=== PATIENT | female | born 1990 | race Caucasian/White ===

== ENCOUNTER 2016-07-05 14:40 | Emergency (ER) | payer MEDICAID ==
[2010-02-16 10:28] VITALS: BMI 34.3
[2016-09-01] MEDS ORDERED: FERROUS SULFAT325 MG PO (11:48)
[2016-09-01] MEDS ORDERED: PRENATAL COMPLE1 TAB PO (11:48)
[2016-09-14 05:53] VITALS: BMI 39.6
== END 2016-07-05 17:18 | disposition home or self-care (01) ==
LOC: D.ER 14:40
DX: S79.911A Unspecified injury of right hip, initial encounter (principal); W10.9XXA Fall (on) (from) unspecified stairs and steps, initial encounter; Y93.89 Activity, other specified; Y92.019 Unspecified place in single-family (private) house as the place of occurrence of the external cause; Z3A.29 29 weeks gestation of pregnancy

== ENCOUNTER → 2016-09-01 11:37 | Outpatient (CLI) | payer MEDICAID ==
[2010-02-16 10:28] VITALS: BMI 34.3
[~2016-09-01 11:37] MED LIST: FERROUS SULFAT325 MG PO; IBUPROFEN600 MG PO; PERCOCET 5-3251 TAB PO; PRENATAL COMPLE1 TAB PO
[2016-09-14 05:53] VITALS: BMI 39.6
== END | disposition home or self-care (01) ==
LOC: D.LDO 11:37
DX: O36.8190 Decreased fetal movements, unspecified trimester, not applicable or unspecified (principal)

== ENCOUNTER → 2016-09-04 13:39 | Outpatient (CLI) | payer MEDICAID ==
[2010-02-16 10:28] VITALS: BMI 34.3
[2016-09-14 05:53] VITALS: BMI 39.6
== END | disposition home or self-care (01) ==
LOC: D.LDO 13:39
DX: O36.8130 Decreased fetal movements, third trimester, not applicable or unspecified (principal); Z3A.37 37 weeks gestation of pregnancy

== ENCOUNTER → 2016-09-08 11:15 | Outpatient (CLI) | payer MEDICAID ==
[2010-02-16 10:28] VITALS: BMI 34.3
[2016-09-08 12:19] LABS: BASOPHILS 0.3 % (0.0-2.0); HEMATOCRIT 34.1 % (36.0-48.0); HEMOGLOBIN 11.2 g/dL (12-16); IMMATURE GRANULOCYTES 0.3 % (0-5); LYMPHOCYTES 20.8 % (15-50); MCH 28.3 pg (26.0-34.0); MCHC 32.8 g/dL (31.0-37.0); MCV 86.1 fL (80.0-100.0); MEAN PLATELET VOLUME 10.3 fL (7.4-10.4); MONOCYTES 9.1 % (2-11); NEUTROPHILS 68.5 % (40-80); PLATELET COUNT 277 10x3/uL (130-400); RBC 3.96 10x6/uL (4.00-5.40); RDW 12.7 % (11.5-14.5); WBC 9.8 10x3/uL (4.8-10.8)
[2016-09-08 12:41] LABS: ALBUMIN 2.3 g/dL (3.4-5.0); ALKALINE PHOSPHATASE 170 U/L (46-116); ALT (SGPT) 15 U/L (10-68); BILIRUBIN - INDIRECT 0.28 mg/dL (0.00-1.00); BILIRUBIN - TOTAL 0.33 mg/dL (0.2-1.3); CALC OSMOLALITY 270 mosm/kg (275-300); CALCIUM 8.3 mg/dL (8.5-10.1); CARBON DIOXIDE 24.3 mmol/L (21.0-32.0); CHLORIDE - SERUM 105 mmol/L (98-107); CREATININE - SERUM 0.4 mg/dL (0.6-1.3); GLUCOSE 87 mg/dL (74-106); POTASSIUM - SERUM 3.7 mmol/L (3.5-5.1); PROTEIN - SERUM 6.7 g/dL (6.4-8.2); SODIUM 137 mmol/L (136-145); UREA NITROGEN 6 mg/dL (7-18); URIC ACID 3.6 mg/dL (2.6-7.2); eGFR NON AFRICAN AMERICAN > 90 mL/min (90-120)
[2016-09-08 12:53] LABS: BILIRUBIN - DIRECT 0.05 mg/dL (0.00-0.30)
[2016-09-10 11:05] LABS: PROTEIN - URINE 27.9 mg/dL (0.0-11.9)
[2016-09-14 05:53] VITALS: BMI 39.6
== END | disposition home or self-care (01) ==
LOC: D.LDO 11:15
PROVIDERS: Specialist
DX: Z34.93 Encounter for supervision of normal pregnancy, unspecified, third trimester (principal); Z3A.38 38 weeks gestation of pregnancy; R03.0 Elevated blood-pressure reading, without diagnosis of hypertension

== ENCOUNTER → 2016-09-10 10:10 | Outpatient (CLI) | payer MEDICAID ==
[2010-02-16 10:28] VITALS: BMI 34.3
[~2016-09-10 10:10] MED LIST changes: -IBUPROFEN600 MG PO; -PERCOCET 5-3251 TAB PO
[2016-09-10 11:52] LABS: APPEARANCE CLOUDY (CLEAR); COLOR YELLOW (YELLOW); LEUKOCYTE ESTERASE 2+ (NEGATIVE); NITRITE NEGATIVE (NEGATIVE)
[2016-09-10 11:53] LABS: BACTERIA MANY /hpf (NONE SEEN); BILIRUBIN NEGATIVE (NEGATIVE); EPITHELIAL CELLS 0-5 /hpf (0-5); GLUCOSE NEGATIVE (NEGATIVE); KETONE SMALL mg/dL (NEGATIVE); MUCUS >1+ /lpf (NONE SEEN); PROTEIN 2+ mg/dL (NEGATIVE); RED CELLS - URINE 0-5 /hpf (0-5); UROBILINOGEN NORMAL (NORMAL); YEAST NONE SEEN /hpf (NONE SEEN)
== END | disposition home or self-care (01) ==
LOC: D.LDO 10:10
PROVIDERS: Specialist
DX: Z34.83 Encounter for supervision of other normal pregnancy, third trimester (principal); Z3A.38 38 weeks gestation of pregnancy; R03.0 Elevated blood-pressure reading, without diagnosis of hypertension

== ENCOUNTER 2016-09-14 05:43 | Inpatient (IN) | payer MEDICAID ==
[~2016-09-14] VITALS: Ht 165.1 cm; Wt 108.0 kg
[2016-09-14] VITALS (14 sets, daily range): BP systolic 113–156; BP diastolic 56–87; Ht 165.1 cm; Wt 108.0 kg
[2016-09-14 06:17] LABS: HEMATOCRIT 36.6 % (36.0-48.0); HEMOGLOBIN 12.2 g/dL (12-16); MCH 28.3 pg (26.0-34.0); MCHC 33.3 g/dL (31.0-37.0); MCV 84.9 fL (80.0-100.0); MEAN PLATELET VOLUME 10.9 fL (7.4-10.4); RBC 4.31 10x6/uL (4.00-5.40); RDW 12.8 % (11.5-14.5); WBC 9.6 10x3/uL (4.8-10.8)
--- NOTE | 2016-09-14 08:29 | NUR ---
BABY BOY BORN AT 0815 PLACENTA AT 0816 AGBS AND BLOOD SAMPLES DRAWN FROM CORD BLOOD.
--- NOTE | 2016-09-14 09:29 | NUR ---
PT FUNDUS IS STILL MIDLINE UMBILICUS AND FIRM. CONCEPCION CATHETOR IS SECURE TO RIGHT UPPER THIGH. PT VOICES"IM JUST TIRED, BUT MY PAIN IS BETTER", "2/10" ON NUMERIC SCALE. SCANT BLEEDING ON DEVANTE PAD
--- NOTE | 2016-09-14 09:42 | NUR ---
RECEIVED PT FROM VIA BED TO ROOM 1278. BED LOCKED AND PLACED IN LOW POSITION. VSS. HRRR WITHOUT AUDIBLE MURMUR. BBS CLEAR. BS HYPOACTIVE X 4 QUADS. ABDOMINAL DRESSING DRY WITHOUT DRAINAGE NOTED. ICE PACK TO INCISION. SCDS ON BLE. PUMP ON. CONCEPCION TO GRAVITY DRAINING SLIGHTLY BLUE COLORED URINE. PIV SITE CLEAR TO RIGHT FOREARM. PT STATES PAIN OF "7" ON 0-10 PAIN SCALE. ORIENTED TO ROOM, BED, AND CALL LIGHT. SR UPX 2. CALL LIGHT IN REACH.
--- NOTE | 2016-09-14 09:45 | NUR ---
abd dressing cd&i. small lochia noted under pad. fundus uu/firm. scant lochia noted with massage- no clots. pads changed. ice cap to abd.
[2016-09-14 09:56] LABS: APPEARANCE CLEAR (CLEAR); COLOR YELLOW (YELLOW)
[2016-09-14 09:57] LABS: BILIRUBIN NEGATIVE (NEGATIVE); GLUCOSE NEGATIVE (NEGATIVE); KETONE NEGATIVE (NEGATIVE); LEUKOCYTE ESTERASE TRACE (NEGATIVE); NITRITE NEGATIVE (NEGATIVE); PROTEIN NEGATIVE (NEGATIVE); UROBILINOGEN NORMAL (NORMAL)
[2016-09-14 09:58] LABS: BACTERIA NONE SEEN /hpf (NONE SEEN); EPITHELIAL CELLS NSEEN /hpf (0-5); MUCUS <1+ /lpf (NONE SEEN); RED CELLS - URINE NONE SEEN /hpf (0-5); WHITE CELLS - URINE RARE /hpf (0-5)
--- NOTE | 2016-09-14 10:44 | NUR ---
PT C/O BREAKTHROUGH INCISIONAL PAIN AND CRAMPING. TORADOL 30 MG GIVEN SIVP OVER 2 MINUTES. PT INSTRUCTED ON MED. VERBALIZES UNDERSTANDING.
--- NOTE | 2016-09-14 11:20 | NUR ---
PT SITTING UP IN BED. VISITS WITH FAMILY. STATES PAIN NOW "3" ON 0-10 PAIN SCALE.
--- NOTE | 2016-09-14 12:35 | NUR ---
PT SITTING UP IN BED. CONSUMING CLEAR LIQUID DIET. TOLERATING WELL. DENIES NEEDS OR C/O.
--- NOTE | 2016-09-14 14:15 | NUR ---
PT SITTING UP IN BED. VISITS WITH FAMILY. DENIES C/O. I/O COMPLETED. REQUESTS AND RECEIVES COVERS OFF PT IS HOT. FUNDUS FIRM AT U/U. RUBRA LOCHIA SCANT AMT. ABDOMINAL DRESSING DRY WITHOUT DRAINAGE. FRESH ICE PACK TO INCISION. PIV SITE CLEAR. ICE CHIPS PROVIDED TO PT.
--- NOTE | 2016-09-14 15:35 | NUR ---
PT SITTING UP IN BED. EYES CLOSED. WAKES UPON ENTERING ROOM. DEMEROL LEAD FIRE PROTECTION ENGINEER VIAL CHANGED. PT DENIES NEEDS OR C/O.
--- NOTE | 2016-09-14 16:44 | NUR ---
PT SITTING UP IN BED. VISITS WITH FAMILY. PROVIDED PT WITH TREAT BOX WITH MEAL TICKET. DENIES NEEDS OR C/O.
--- NOTE | 2016-09-14 18:00 | NUR ---
PERICARE DONE. FUNDUS FIRM AT U/1. RUBRA LOCHIA SMALL AMT. NO CLOTS NOTED. PERICARE DONE. CHUX, PERIPAD AND PINK PAD CHANGED. PT REPOSITIONS TO RIGHT SIDE IN BED. PROPPED WITH PILLOWS. ABDOMINAL DRESSING DRY WITHOUT DRAINAGE. FRESH ICE PACK TO INCISION. I/O COMPLETED. URINE CONCENTRATED. PT PROVIDED LARGE CUP OF ICE WATER AND ENCOURAGED TO INCREASE FLUID INTAKE. PT VERBALIZES UNDERSTANDING. SR UPX 2. CALL LIGHT AND SQUADRON WORKER BUTTON IN REACH.
--- NOTE | 2016-09-14 19:08 | NUR ---
RCVD THIS G2 NOW P2 FROM Phylicia CAVAZOS RN. PT LYING ON RT SIDE WITH EYES CLOSED, RESTING. PT AWAKENS EASILY UPON THIS RN ENTERING ROOM. V/S ASSESSED AT THIS TIME. PT RATES PAIN CURRENTLY 4/10 IN ABD AND REPORTS THIS TOLERABLE. PT IS AGREEABLE TO AMB @2015 WHICH IS 12 HRS POST OP AND WILL TRANSFER TO ROOM 1257 TO CONT POST CARE. SHIFT ASSESSMENT COMPLETE AT THIS TIME. BREATH SOUNDS CLEAR =X2. HR RRR, PPP, BOWEL SOUNDS ACTIVE X4. PIV TO RT FOREARM C/D/I, NO ERYTHEMA OR EDEMA NOTED TO SITE WITH NS WITH 20 U PITOCIN INFUSING @ 125ML/HR VIA PUMP. RN FIELD CURRENTLY IN USE. SEE EMAR. LARGE DRESSING NOTED OVER INCISION TO ABD C/D/I. SCD'S ON AND FUNCTIONING PROPERLY. NO EDEMA NOTED TO BLE. PT REQUESTS & RECEIVES ICE WATER. DENIES FURTHER NEEDS. BED LOW, WHEELS LOCKED, CL IN REACH, SIDE RAILS UP X2.
--- NOTE | 2016-09-14 20:15 | NUR ---
PIV TO RT FOREARM SL AT THIS TIME. CONCEPCION REMOVED WITH CATH TIP INTACT, PT DILMA. WELL. 175 ML CLEAR GREEN TINGED URINE EMPTIED FROM CONCEPCION BAG. PT UP TO SITTING ON SIDE OF BED. REPORTS FEELING DIZZY, INST TO SIT UNTIL FEELING GOES AWAY. AFTER 30 SECS PT REPORTS DIZZINESS ELEVIATED. PT UP TO STANDING BEDSIDE. PT IS STEADY ON FEET. AMB TO BATHROOM, STEADY GAIT NOTED. PT VOIDS ANOTHER 200ML. CLEAN GOWN, PERIPADS AND PANTIES PROVIDED. PT RATES CURRENTLY PAIN 01/21. PLAN TO ADMINISTER PERCOCET PER ORDERS, SEE EMAR. PT AMB'S PER SELF TO ROOM 1257 AT THIS TIME.
--- NOTE | 2016-09-14 20:36 | NUR ---
PT AND FAMILY ORIENTED TO ROOM. PT POSITIONS SELF IN BED FOR COMFORT. PERCOCET 10/325MG X1 TAB GIVEN FOR PAIN RATED 8/10 AT THIS TIME. FAMILY AT BEDSIDE. ICE WATER PROVIDED PER PT REQUEST. PT DENIES FURTHER NEEDS AT THIS TIME. WILL CONT. POC.
--- NOTE | 2016-09-14 20:38 | NUR ---
12 ML OF ASSEMBLER MOTOR VEHICLE WASTED AND DOCUMENTED IN PYXIS.
--- NOTE | 2016-09-14 21:20 | NUR ---
PAIN REASSESSMENT COMPLETE. PT RATES PAIN 2/10 CURRENTLY AND TOLERABLE. INFANT UP IN ARMS FOR BONDING AT THIS TIME. FAMILY REMAINS AT BEDSIDE. PT DENIES FURTHER NEEDS. WILL CONT. POC.
--- NOTE | 2016-09-14 22:14 | NUR ---
ROUNDS MADE. PT LYING ON BACK WITH UP ON CHEST. PT RATES PAIN A 2/10 AND DESCRIBES IT A DULL ACHE. FAMILY REMAINS AT BEDSIDE. PT DENIES FURTHER NEEDS AT THIS TIME.
--- NOTE | 2016-09-15 00:16 | NUR ---
PT RESTING ON BACK, EYES CLOSED, RESP EVEN & UNLABORED. FAMILY RESTING ON BEDSIDE COUCH. PT LEFT UNDISTURBED AT THIS TIME.
--- NOTE | 2016-09-15 01:41 | NUR ---
PT RINGS CL, THIS RN TO BEDSIDE. PT REQUESTS & RECEIVES PERCOCET 10/325MG X1 TAB FOR PAIN RATED 9/10 IN ABD AT THIS TIME. FAMILY REMAINS AT BEDSIDE. UP IN ARMS. PT DENIES FURTHER NEEDS AT THIS TIME.
--- NOTE | 2016-09-15 02:24 | NUR ---
PAIN REASSESSMENT COMPLETE. PT RATES CURRENT PAIN LEVEL 2/10 AND TOLERABLE. UP IN ARMS. ADV PT NOT TO FALL ASLEEP WITH INFANT IN ARMS AND TO PLACE IN OPEN CRIB OR CALL NBN. PT VERBALIZED UNDERSTANDING AND DENIES FURTHER NEEDS.
--- NOTE | 2016-09-15 03:30 | NUR ---
PT CALLS TO SEND BACK TO NBN. INFANT TRANSPORTED VIA OPEN CRIB PER THIS RN. PT DENIES FURTHER NEEDS AT THIS TIME.
--- NOTE | 2016-09-15 05:56 | NUR ---
ROUNDS MADE. PT LYING ON BACK, HOB 30 DEGREES, RESTING, EYES CLOSED, RESP EVEN AND UNLABORED. PT LEFT UNDISTURBED AT THIS TIME. FAMILY REMAINS ASLEEP AT BEDSIDE.
[2016-09-15 05:57] LABS: BASOPHILS 0.1 % (0.0-2.0); EOSINOPHILS 1.3 % (0-7); HEMATOCRIT 33.8 % (36.0-48.0); HEMOGLOBIN 10.9 g/dL (12-16); IMMATURE GRANULOCYTES 0.3 % (0-5); LYMPHOCYTES 7.5 % (15-50); MCH 27.8 pg (26.0-34.0); MCHC 32.2 g/dL (31.0-37.0); MCV 86.2 fL (80.0-100.0); MEAN PLATELET VOLUME 10.4 fL (7.4-10.4); MONOCYTES 6.5 % (2-11); NEUTROPHILS 84.3 % (40-80); RBC 3.92 10x6/uL (4.00-5.40); RDW 12.9 % (11.5-14.5)
[2016-09-15 06:21] LABS: PLATELET COUNT 235 10x3/uL (130-400); WBC 12.2 10x3/uL (4.8-10.8)
--- NOTE | 2016-09-15 07:19 | NUR ---
called to room, pt amb back to bed per herself after voiding. Ask for pain med, rates pain at incision at 10/10. Meds given as charted on emar with large ice water. No other needs at this time. Family at bedside caring for at this time. Side rails up x 2 with phone and call light in reach.
[2016-09-15 07:23] LABS: RAPID PLASMA REAGIN Non Reactive (Non Reactive)
[2016-09-15 08:05] VITALS: BP 122/67
--- NOTE | 2016-09-15 08:47 | NUR ---
AM assessment completed as charted on flowsheet. pt rates pain at 2/10 at this time, fundus firm at u/1 with light lochia, she denies clots and states bleeding is "very little". Bikini incision covered with large white bandage that is clean and dry. Verbal instrucstions given on how to remove bandage while showering. Questions answered about when she could shower and towels provided, her mother states that she will be present and will call nurse if assistance is needed. Side rails up x 2 with call light and phone in reach. in crib at bedside at this time.
--- NOTE | 2016-09-15 09:20 | NUR ---
Pt up to shower. Bed linens changed.
--- NOTE | 2016-09-15 09:29 | NUR ---
Pt called out abd dressing wet. Removed dressing without difficulty. Pt continues to rinse in shower. Will call when ready to get out.
--- NOTE | 2016-09-15 09:37 | NUR ---
Assisted Patient after shower. Incision dried - no redness or drainaged noted. Covered with catherine pad. Underwear on and assisted with dressing. Pt ambulating in room without difficulty. Ice water provided per request.
--- NOTE | 2016-09-15 10:30 | NUR ---
Pt up walking without difficlty. Tolerated well.
--- NOTE | 2016-09-15 10:54 | NUR ---
Pt resting in bed denies needs. Asked about pain and stated she was ok. Explain not to go to long without pain medications. Pt states, "if it is time I will take pain medication".
--- NOTE | 2016-09-15 10:55 | NUR ---
Explain to patient it will be about 20 minutes and I will bring her pain medication in. Verblized her understanding
--- NOTE | 2016-09-15 11:14 | NUR ---
Medicated for pain rates 8 on 0-10 pain scale. Urine hat provided to catch next 3 voids. Pt verblized her understanding. Infant resting quietly in open crib. Color WNL and skin warm and dry to touch.
[2016-09-15 11:22] VITALS: BP 112/64
--- NOTE | 2016-09-15 11:23 | NUR ---
IS USED AND REACHED 2000 X 3. INSTRUCTED PT TO USE EVERY HOUR WHILE AWAK. VERBLIZED HER UNDERSTANDING.
--- NOTE | 2016-09-15 11:24 | NUR ---
PT STATES SHE HAS VOIDED X 3 SINCE CATH HAS COME OUT THIS AM. SHE DOES NOT FEED SHE IS VOIDING LARGE AMOUNTS. SHE KNOWS TO VOID IN HAT AND CALL.
--- NOTE | 2016-09-15 12:15 | NUR ---
Pt rates pain 5 on scale of 0-10. Awake and alert. Pt up to void without difficulty. Voided 425 ml. Will capture one more void. Pt denes needs.
--- NOTE | 2016-09-15 13:10 | NUR ---
Pt awke and aler, denies needs at this time. No acute distress noted. Holding infant and feeding bottle at this time. States pain 2 on 0-10 pain scale.
--- NOTE | 2016-09-15 14:27 | NUR ---
Medicated for pain see emar. Provided grayson gross. peanut butter and milk. Pt denies further needs. Voided 300 ml katrina urine.
--- NOTE | 2016-09-15 15:47 | NUR ---
C/O PAIN AT INCISION. ENOCURAGED PT TO EMPTY BLADDER. PAIN MEDS GIVEN.
[2016-09-15 16:06] VITALS: BP 116/70
--- NOTE | 2016-09-15 19:35 | NUR ---
PT RECEIVED SITTING UP IN BED BOTTLEFEEDING INFANT AT THIS TIME. FAMILY AT BEDSIDE. DENIES NEEDS AT THIS TIME. BED LOW. PHONE AND CALL LIGHT IN REACH. SRX2.
[2016-09-15 20:26] VITALS: BP 127/66
--- NOTE | 2016-09-15 20:26 | NUR ---
PT SITTING UP IN BED HOLDING AT THIS TIME. VSS. SALINE LOCK NOTED TO RIGHT FOREARM. DRESSING CDI. HEART RRR. LUNG SOUNDS CLEAR BILATERALLY. BOWEL SOUNDS ACTIVE X4 QUADRENTS. ABDOMEN SOFT WITH TENDERNESS. FUNDUS FIRM AND MIDLINE. U/2. LOW TRANSVERSE INCISION NOTED TO ABDOMEN WITH DERMABOND. NO REDNESS, SWELLING, OR PURULENT DRAINAGE NOTED. SCANT LOCHIA RUBRA NOTED TO DEVANTE PAD AT THIS TIME. PT STATES BLEEDING HAS BEEN LIGHT THROUGHOUT THE DAY. ADMINISTERED PERCOCET PO PER ORDERS AT THIS TIME FOR PAIN PT RATES 01/21. PT REQUESTS ICE WATER. DENIES OTHER NEEDS. BED LOW. PHONE AND CALL LIGHT IN REACH. SRX2.
--- NOTE | 2016-09-15 21:28 | NUR ---
REASSESSED PTS PAIN AT THIS TIME. RATES PAIN 4/10. DENIES NEEDS. BED LOW. PHONE AND CALL LIGHT IN REACH. SRX2.
--- NOTE | 2016-09-15 22:37 | NUR ---
ADMINISTERED MOTRIN PO PER ORDERS AT THIS TIME. PT DENIES OTHER NEEDS. BED LOW. PHONE AND CALL LIGHT IN REACH. SRX2.
--- NOTE | 2016-09-15 22:38 | NUR ---
ADMINISTERED MOTRIN PO PER ORDERS AT THIS TIME FOR PAIN PT RATES 11/21. PT DENIES OTHER NEEDS. BED LOW. PHONE AND CALL LIGHT IN REACH. SRX2.
[2016-09-16] VITALS: BP 134/74
--- NOTE | 2016-09-16 | NUR ---
PT RESTING QUIETLY AT THIS TIME. AROUSED EASILY. VSS. DENIES NEEDS AT THIS TIME. BED LOW. PHONE AND CALL LIGHT IN REACH. SRX2.
--- NOTE | 2016-09-16 02:00 | NUR ---
PT RESTING QUIETLY AT THIS TIME WITH EYES CLOSED. RESPIRATIONS EVEN, NON-LABORED. NO ACUTE DISTRESS NOTED AT THIS TIME. BED LOW. PHONE AND CALL LIGHT IN REACH. SRX2.
[2016-09-16 04:09] VITALS: BP 134/72
--- NOTE | 2016-09-16 04:09 | NUR ---
PT RESTING QUIETLY AT THIS TIME WITH EYES CLOSED. AROUSED EASILY. ADMINISTERED PERCOCET PO PER ORDERS AT THIS TIME FOR PAIN PT RATES 02/21. VSS. PT DENIES OTHER NEEDS. BED LOW. PHONE AND CALL LIGHT IN REACH. SRX2.
--- NOTE | 2016-09-16 06:40 | NUR ---
PT BOTTLEFEEDING AT THIS TIME. REQUESTS MEDICATION FOR PAIN PT RATES 11/21. ADMINISTERED MOTRIN PO PER ORDERS AT THIS TIME. PT DENIES OTHER NEEDS. BED LOW. PHONE AND CALL LIGHT IN REACH. SRX2.
--- NOTE | 2016-09-16 06:55 | NUR ---
SBAR HANDOFF RECEIVED FROM GUILLERMINA GARCIA RN. PATIENT SUPINE IN BED, SLEEPING AT INTERVALS. MOTHER AND 2 OTHER VISITORS AT BEDSIDE. NO SIGNS OF RESP DISTRESS OR OTHER DISTRESS NOTED OR REPORTED.
[2016-09-16] MEDS ORDERED: IBUPROFEN600 MG PO (08:02)
[2016-09-16] MEDS ORDERED: PERCOCET 5-3251 TAB PO (08:02)
--- NOTE | 2016-09-16 08:15 | NUR ---
UP AND ABOUT IN ROOM. STATES ABD INCISION PAIN GETTING WORSE AND REQUESTS ANALGESIA. BBS = AND CTA. REPORTS USE OF INCENTIVE SPIROMETER REGULARLY. BOWEL SOUNDS ACTIVE X 4 QUADS; REPORTS PASSAGE OF GAS RECTALLY. FUNDUS FIRM AT 2 FINGERS BELOW UMBILICUS. REPORTS LOCHIA LIGHT. DOZIER. NEGATIVE HOMANS. RIGHT FOREARM SALINE LOCK REMOVED NOTING NO SIGNS OF REDNESS, SWELLING, DRAINAGE OR FEVER; STERILE BANDAID APPLIED; INSTRUCTED TO LEAVE BANDAID INTACT X 24 HR AND REPORT SIGNS OF COMPLICATIONS AT ONSET. ABD INCISION NOTED WITH DERMABOND INTACT; MARGINS WELL APPROXIMATED; SLIGHT BRUISING; NO REDNESS, SWELLING, DRAINAGE OR FEVER; INSTRUCTED TO CALL SURGEON AT ONSET OF SAME, IF NOTED. ALERT AND ORIENTED X 4. SKIN WARM DRY AND PINK/SLIGHTLY PALE. RESP REG AND EVEN. NO SIGNS OF RESP DISTRESS OR OTHER DISTRESS NOTED OR REPORTED.
--- NOTE | 2016-09-16 08:15 | NUR ---
PT IS LYING IN BED. OFFERS NO COMPLAINTS. GEN- AWAKE AND ALERT. LUNGS- CLEAR. HEART- RRR. ABD - SOFT WITH TENDERNESS. INCISION CLEAN AND DRY, WITH DERMABOND. EXT- MINIMAL EDEMA. BED IS LOW, SIDE RAILS UP X 2 AND CALL LIGHT IN REACH.
--- NOTE | 2016-09-16 09:15 | NUR ---
REPORTS PAIN SUBSIDING. DISCHARGE TEACHING COMPLETED. UP AND ABOUT IN ROOM. BONDING WELL WITH INFANT.
--- NOTE | 2016-09-16 09:20 | NUR ---
WRITTEN RX FOR PERCOCET 5 AND MOTRIN GIVEN
--- NOTE | 2016-09-16 09:40 | NUR ---
UP AND ABOUT AMBULATING IN MEDEL. REMAINS STABLE WITH NO SIGNS OF RESP DISTRESS OR OTHER DISTRESS NOTED OR REPORTED. DILMA REG DIET WELL.
--- NOTE | 2016-09-16 11:11 | NUR ---
DR RODRIGUEZ AT BEDSIDE FOR . PATIENT REMAINS STABLE WITH NO SIGNS OF RESP DISTRESS OR OTHER DISTRESS NOTED OR REPORTED.
--- NOTE | 2016-09-16 12:15 | NUR ---
MOTHER REPORTS SHE IS LIVING WITH AND WILL CONTINUE TO LIVE WITH HER MOTHER AND MOTHER ATTENTIVE AT BEDSIDE.
--- NOTE | 2016-09-16 12:30 | NUR ---
DISCHARGED IN STABLE CONDITION AFTER MOTHER DEMONSTRATES SKILL IN PLACING INFANT IN CAR SEAT WITH 2 FINGER BREADTHS BETWEEN INFANT AND CAR SEAT STRAPS.
--- NOTE | 2016-10-02 13:40 | OP ---
PATIENT NAME: SHIRLEY LEMUS MEDICAL RECORD: [id number] :90 LOCATION:[facility] ADMISSION DATE:09/14/16 SURGEON: CHRIS CELIS MD DATE OF OPERATION: 09/14/2016 PREOPERATIVE DIAGNOSES: 1. Intrauterine at 39 weeks, 2 days. 2. Previous caesarean section times 2. 3. Desired sterility. 4. Morbid obesity. POSTOPERATIVE DIAGNOSES: 1. Intrauterine at 39 weeks, 2 days. 2. Previous caesarean section times 2. 3. Desired sterility. 4. Morbid obesity. 5. Delivered. SURGEON: Chris Celis MD. ANESTHESIA: Spinal anesthesia with Grace Avila CRNA. PROCEDURES: 1. Repeat low transverse with vacuum assistance. 2. Bilateral tubal ligation via distal salpingectomy. FINDINGS: Delivery of viable male from vertex presentation via repeat low transverse with vacuum assistance under spinal anesthesia at 8:15 a.m. with weight of 7 pounds 1.5 ounces and scores of 8 and 9 at 1 and 5 minutes respectively. A nuchal cord times 1 was noted and reduced. The cord was clamped and cut. The was bulb suctioned and handed to awaiting pediatric nursing personnel. The placenta was delivered manually intact with 3-vessel cord at 8:16 a.m. Twenty units of Pitocin and 1 liter of normal saline was begun IV. The fundus was noted to be firm. Severe adhesion of the anterior uterus to the anterior abdominal wall/rectus sheath and bladder to the anterior uterus was noted intraoperatively. Meticulous dissection ensued with no obvious injury to the bladder noted. Methylene blue was given intraoperatively to ensure this with no extravasation of blue dye noted at any point. Bilateral distal salpingectomy was performed for sterilization in the usual fashion. Excellent hemostasis was noted. The patient went to the recovery room in stable condition, the infant to the nursery. DESCRIPTION OF PROCEDURE: After informed consent was given, the patient was taken to the operating room where spinal anesthesia was placed and found to be adequate. She was placed in a dorsal supine position with leftward tilt. A Walters catheter was placed with clear urine return noted. She was prepped and draped sterilely. A Pfannenstiel skin incision was made through her previous scar and carried down to the underlying layer of fascia. The fascia was incised in the midline and the fascial incision extended bilaterally with the Berger scissors. The superior portion of the fascial incision was grasped with 2 Mulu clamps and the rectus muscles dissected off sharply and bluntly. Attention was then turned to the inferior portion of the fascial incision, which was again grasped with 2 Mulu clamps and the rectus muscles dissected off sharply and bluntly. The rectus muscles were noted to be adherent in the midline, a region superior and well away from the region of the bladder was OPERATIVE REPORT [id number] SHIRLEY LEMUS grasped with 2 hemostats and entered sharply with the Metzenbaum scissors and we continued dissecting down what was thought to possibly be the peritoneum was grasped with 2 hemostats and entered sharply with the Metzenbaum scissors, but this was returned with a venous type of drainage. Therefore, it was suspected that the uterine serosa was adherent to the anterior abdominal wall; therefore, the plane between these 2 structures was meticulously dissected and upon reaching the plane between the uterine serosa and the anterior abdominal peritoneum, we were able to then began dissecting the anterior rectus sheath away from the anterior uterine serosa. Once this was completed, the bladder flap was identified and entered sharply with the Metzenbaum scissors. This incision was extended superiorly and inferiorly with good visualization of the bladder. The bladder blade was inserted and the hysterotomy was then created with the knife. This was extended bilaterally bluntly and the infant's head delivered atraumatically with vacuum assistance. A nuchal cord was noted and was reduced. The cord was clamped and cut. The was bulb suctioned and handed to awaiting pediatric nursing personnel. The placenta was delivered, manually expressed and passed off the field as specimen. Cord blood was obtained. The uterus was then exteriorized, cleared of all clots and debris. The anterior of the uterus was wiped with a moist lap sponge. The dense adhesions had been taken down of the anterior uterine serosa ended up creating a defect in the uterine serosa just superior to the hysterotomy site. This was reapproximated with a baseball stitch. We then closed the hysterotomy in a running locked in the usual fashion including this serosa edge in the medial region of the hysterotomy closure. Excellent hemostasis was noted. Lap sponges were placed to provide pressure over this lower uterine segment region as the preparations were made for the tubal ligation. The right fallopian tube was then grasped with a Sheila clamp, followed out to the fimbriated edge where it was grasped again with a second Sheila clamp. Two defects were created in the mesosalpinx and a hemostat was used to clamp the fallopian tube more proximally, another to clamp the mesosalpinx distal to this and finally at the mesosalpinx at the terminal region near the fimbria. The Bovie cautery was then used to excise the distal fallopian tube and fimbria and this was passed off the field as specimen and the 3 pedicles were then suture ligated with 3-0 Vicryl stick ties. Excellent hemostasis was noted. Attention was turned to the opposite side where in a similar fashion; the left fallopian tube was identified, followed out to its fimbriated edge. Two Sheila clamps were used to clamp the fallopian tube at the distal fimbrial region as well as more proximal region. Defects were created in the mesosalpinx with the Bovie cautery and hemostats were used to clamp at the proximal region of the distal fallopian tube. The mesosalpinx distal to this and the mesosalpinx near the fimbria. The Bovie cautery was then used to excise the left distal fallopian tube and fimbria and this was passed off the field as specimen. The 3 pedicles in a similar fashion were then suture ligated with 3-0 Vicryl stick ties and excellent hemostasis was again noted. The uterus was gently returned to the abdomen. The abdomen was irrigated profusely and noted to be hemostatic. Edmond dust was placed over the hysterotomy and a baseball stitch midline closure of the uterus to aid additionally in hemostasis and Interceed adhesion barrier was also placed over the midline baseball stitch portion to help prevent future adhesions. The rectus muscles were then reapproximated in the midline with 4 interrupted chromic sutures. The fascia was closed with 0 Vicryl in a running fashion, locking the first suture. The subcutaneous tissue was irrigated, any bleeders cauterized with the Bovie and when noted to be sufficiently dry was closed with 3-0 Vicryl in a running fashion and the skin was closed with 3-0 Monocryl in a subcuticular fashion. Dermabond and pressure dressing were applied. Clear blue-green urine was noted at completion of the procedure. The patient OPERATIVE REPORT [id number] MARIAHSHIRLEY tolerated the procedure well. Sponge, lap, needle and instrument counts were reported correct times 3 and the patient went to the recovery room in stable condition, the infant to the nursery. ESTIMATED BLOOD LOSS: 800 cc. URINE OUTPUT: 200 cc. SPECIMENS: 1. Placenta. 2. Cord blood. 3. Right distal fallopian tube and fimbria. 4. Left distal fallopian tube and fimbria. COMPLICATIONS: None. TRANSINT:[id number] Voice Confirmation ID: [id number] DOCUMENT ID: [id number] CHRIS CELIS MD at 1340 CC: [id number] DICTATION DATE: 09/14/16 1208 WIG SALES CONSULTANT: 09/14/16 1611 DIS IN 09/16/16 [facility] [address] [place] [address]
== END 2016-09-16 12:30 | disposition home or self-care (01) | DRG 765 ==
LOC: D.LD 05:43 → D.SDCHOLD 07:30 → D.LD 20:36
PROVIDERS: ADMIT Specialist
PROC: 10D00Z1 Extraction of Products of Conception, Low, Open Approach (ICD-10-PCS; principal; 2016-09-14 07:30)
PROC: 0UB70ZZ Excision of Bilateral Fallopian Tubes, Open Approach (ICD-10-PCS; 2016-09-14 07:30)
DX: O34.219 Maternal care for unspecified type scar from previous cesarean delivery (principal); Z68.41 Body mass index [BMI] 40.0-44.9, adult; Z3A.39 39 weeks gestation of pregnancy; Z37.0 Single live birth; O99.214 Obesity complicating childbirth; E66.01 Morbid (severe) obesity due to excess calories; Z30.2 Encounter for sterilization; Z30.09 Encounter for other general counseling and advice on contraception

== ENCOUNTER 2016-09-28 14:55 | Emergency (ER) | payer MEDICAID ==
[2016-09-14 05:53] VITALS: BMI 39.6
[~2016-09-28 14:55] MED LIST changes: +IBUPROFEN600 MG PO; +PERCOCET 5-3251 TAB PO
[2016-09-28 18:32] LABS: BASOPHILS 1.1 % (0.0-2.0); EOSINOPHILS 9.3 % (0-7); HEMATOCRIT 35.8 % (36.0-48.0); HEMOGLOBIN 11.5 g/dL (12-16); IMMATURE GRANULOCYTES 0.3 % (0-5); LYMPHOCYTES 21.2 % (15-50); MCH 27.9 pg (26.0-34.0); MCHC 32.1 g/dL (31.0-37.0); MCV 86.9 fL (80.0-100.0); MEAN PLATELET VOLUME 10.1 fL (7.4-10.4); MONOCYTES 6.3 % (2-11); NEUTROPHILS 61.8 % (40-80); RBC 4.12 10x6/uL (4.00-5.40); RDW 12.3 % (11.5-14.5)
[2016-09-28 18:57] LABS: PLATELET COUNT 290 10x3/uL (130-400)
== END 2016-09-28 19:25 | disposition home or self-care (01) ==
LOC: D.ER 14:55
PROVIDERS: Nurse Practitioner Family
DX: G89.18 Other acute postprocedural pain (principal)